=== PATIENT | male | born 1990 | race Hispanic/Latino ===

== ENCOUNTER 2019-01-02 06:16 | Emergency (ER) | payer BC ==
--- NOTE | 2019-01-02 06:51 | ED PDOC ---
HPI: Chest Pain Time Seen by Provider: 01/02/19 06:34 Chief Complaint (Nursing): Chest Pain Chief Complaint (Provider): Chest Pain History Per: Patient History/Exam Limitations: no limitations Onset/Duration Of Symptoms: Days (x1) Current Symptoms Are (Timing): Still Present Additional Complaint(s): 25 y/o male with no significant PMHx presents to the ED for evaluation of intermittent chest pain, onset yesterday. Patient reports pain is mostly left- sided and radiates into his left upper back. Patient notes pain all began after playing a basketball game with his friends on Monday. Patient states pain worsens with breathing and stretching the left arm. Otherwise, patient denies fever,cough and leg swelling. Of note, patient reports of having traveled to a [place] about one month ago on a one hour flight. PMD: no provider Past Medical History Reviewed: Historical Data, Nursing Documentation, Vital Signs Vital Signs: Last Vital Signs Temp 97.5 F L 01/02/19 06:28 Pulse 64 01/02/19 06:28 Resp 18 01/02/19 06:28 BP 116/67 01/02/19 06:28 Pulse Ox 98 01/02/19 06:28 Primary Care Provider: FAMILY PROVIDER,NO - Medical History PMH: No Chronic Diseases - Surgical History Surgical History: No Surg Hx - Family History Family History: States: No Known Family Hx - Social History Current smoker - smoking cessation education provided: Yes (smokes vapor) Alcohol: Occasional - Allergies Allergies/Adverse Reactions: Allergies Allergy/AdvReac Type Severity Reaction Status Date / Time No Known Allergies Allergy Verified 01/02/19 06:33 Review of Systems ROS Statement: Except As Marked, All Systems Reviewed And Found Negative Constitutional: Negative for: Fever Cardiovascular: Positive for: Chest Pain Respiratory: Negative for: Cough Musculoskeletal: Positive for: Back Pain. Negative for: Leg Pain Physical Exam - Reviewed Nursing Documentation Reviewed: Yes Vital Signs Reviewed: Yes - Physical Exam Appears: Positive for: No Acute Distress Head Exam: Positive for: ATRAUMATIC, NORMOCEPHALIC Skin: Positive for: Normal Color, Warm, Dry Eye Exam: Positive for: Normal appearance, EOMI, PERRL Neck: Positive for: Normal, Painless ROM, Supple Cardiovascular/Chest: Positive for: Regular Rate, Rhythm. Negative for: Murmur Respiratory: Positive for: Normal Breath Sounds. Negative for: Respiratory Distress Gastrointestinal/Abdominal: Positive for: Normal Exam, Soft. Negative for: Tenderness Back: Positive for: Normal Inspection. Negative for: L CVA Tenderness, R CVA Tenderness, Vertebral Tenderness Extremity: Positive for: Normal ROM. Negative for: Deformity Neurological/Psych: Positive for: Awake, Alert, Normal Tone, Oriented (x3). Negative for: Motor/Sensory Deficits - ECG ECG: Positive for: Interpreted By Me, Viewed By Me ECG Rhythm: Positive for: Normal QRS, Normal ST Segment, Sinus Rhythm Rate: 63 O2 Sat by Pulse Oximetry: 98 (RA) Pulse Ox Interpretation: Normal Medical Decision Making Medical Decision Making: Time: 0647 Impression: Chest pain Differentials include but not limited to ACS, pulmonary embolism and musculoskeletal pain. Plan: -- EKG -- BMP -- Troponin I -- CBC with Differentials -- D Dimer -- CXR Two Views -- [employer] Time: 0700 -- Patient endorsed to Dr. Dickens, pending ER workup, re-evaluation and final ER disposition. Scribe Attestation: Documented by Jada Richardson, acting as a scribe Chiara Frazier MD. Provider Scribe Attestation: All medical record entries made by the Scribe were at my direction and personally dictated by me. I have reviewed the chart and agree that the record accurately reflects my personal performance of the history, physical exam, medical decision making, and the department course for this patient. I have also personally directed, reviewed, and agree with the discharge instructions and disposition. Disposition - Patient ED Disposition Is Patient to be Admitted: Transfer of Care - Disposition Disposition: Transfer of Care Disposition Time: 07:00 Condition: FAIR Forms: Nextt ([place]) Patient Signed Over To: Khang Dickens III Handoff Comments: pending ER workup, re-evaluation and final ER disposition.
[2019-01-02 07:23] LABS: BASO # 0.1 K/uL (0.0-0.2); BASO % 0.9 % (0.0-2.0); EOS # 0.1 K/uL (0.0-0.7); EOS % 0.9 % (0.0-4.0); HEMOGLOBIN 13.5 g/dL (12.0-18.0); LYMPH # 2.8 K/uL (1.0-4.3); LYMPH % 32.5 % (20.0-40.0); MEAN CELL VOLUME 87.9 fl (80.0-94.0); MEAN CORPUSCULAR HEMOGLOBIN 29.6 pg (27.0-31.0); MEAN CORPUSCULAR HGB CONC 33.6 g/dL (33.0-37.0); MEAN PLATELET VOLUME 8.4 fl (7.2-11.7); MONO # 1.2 K/uL (0.0-0.8); MONO % 13.2 % (0.0-10.0); NEUT # 4.6 K/uL (1.8-7.0); NEUT % 52.5 % (50.0-75.0); RBC 4.55 Mil/uL (4.40-5.90); RED CELL DISTRIBUTION WIDTH 13.7 % (11.5-14.5); WHITE BLOOD COUNT 8.7 K/uL (4.8-10.8)
[2019-01-02 07:30] LABS: BLOOD UREA NITROGEN 19 mg/dl (9-20); CALCIUM 9.6 mg/dL (8.4-10.2); GFR NON-AFRICAN AMERICAN > 60
--- NOTE | 2019-01-02 09:33 | ED PDOC ---
- Laboratory Results Result Diagrams: 01/02/19 07:00 01/02/19 07:00 Lab Results: D-Dimer, Quantitative < 200 ng/mlDDU (0-230) 01/02/19 07:00 Troponin I < 0.0120 ng/mL (0.00-0.120) 01/02/19 07:00 - ECG O2 Sat by Pulse Oximetry: 99 Medical Decision Making Medical Decision Making: labs unremarkable DDimer neg Heart score 1 repeat EKG no changes feels better in ED Discussed findings and need for followup as outpatient, indications for return and exercise restrictions until cleared by PMD/specialist outpatient workup. Given lack of tachycardia or arrhythmia, lack of EKG changes, normal labs, neg DDimer, unremarkable CXR, improvement of symptoms, low risk score, inpatient treatment not currently indicated. Disposition Counseled Patient/Family Regarding: Studies Performed, Diagnosis, Need For Followup - Clinical Impression Clinical Impression: Chest pain - POA Present On Arrival: None - Disposition Referrals: Ronnie Noble MD [Staff Provider] - Disposition: Routine/Home Disposition Time: 09:32 Condition: FAIR Additional Instructions: Followup with PMD 2-3 days. Return to ER for any new or worsening symptoms. Take naprosyn 2x daily with small meal for pain. Prescriptions: Naproxen [Naprosyn] 500 mg PO BID PRN #14 tablet PRN Reason: Pain, Moderate (4-7) Instructions: Chest Pain Forms: [employer] ([place])
--- NOTE | 2019-01-02 10:13 | RAD ---
Date of service: 01/02/2019 HISTORY: chest pain COMPARISON: No prior. TECHNIQUE: Chest PA and lateral views FINDINGS: LUNGS: No active pulmonary disease. PLEURA: No significant pleural effusion identified. No pneumothorax apparent. CARDIOVASCULAR: No aortic atherosclerotic calcification present. Normal cardiac size. No pulmonary vascular congestion. OSSEOUS STRUCTURES: No significant abnormalities. VISUALIZED UPPER ABDOMEN: Normal. OTHER FINDINGS: None. IMPRESSION: No active disease.
[2019-01-02 10:34] VITALS: BP 110/70; PULSE 66; RESP 15; TEMP 97.9
--- NOTE | 2019-01-02 17:52 | CARD ---
APPROVED REPORT Date of service: 01/02/2019 EKG Measurement Heart [id number] [id number] <Conclusion> Sinus bradycardia with sinus arrhythmia Otherwise normal ECG
--- NOTE | 2019-01-02 17:54 | CARD ---
APPROVED REPORT Date of service: 01/02/2019 EKG Measurement Heart [id number] [place] [id number] [id number] <Conclusion> Normal sinus rhythm Normal ECG
[2019-01-04 16:27] VITALS: O2SAT 99
== END 2019-01-02 10:05 | disposition home or self-care (01) ==
LOC: EDBD 06:16 → H.ER 06:16
DX: R07.9 Chest pain, unspecified (principal)